=== PATIENT | male | born 1990 | race African-American/Black ===

== ENCOUNTER 2020-08-03 00:45 | Emergency (ER) | payer SELFPAY ==
[~2020-08-03] VITALS: Ht 172.7 cm; Wt 90.7 kg
--- NOTE | 2020-08-03 01:09 | Emergency Department Note ---
History of Present Illnes History of Present Illness Chief Complaint: Chest Pain History of Present Illness This is a 29 year old male ks in to the ed for concerns of anxiety x 1 month. patient states that he gets anxious and develops chest discomfort. the chest discomfort is only occuring when the anxiety is coming. ekg done and given to md for evaluation., DENIES ANXIETY AT THIS TIME . Historian: Patient Arrival Mode: Car Prosthetist Required: No Onset (how long ago): month(s) (1) Location: CHEST, Quality: CHEST PRESSURE AND ANXIETY Radiation: Reports non-radiation Severity: moderate Onset quality: sudden Timing of current episode: intermittent Progression: unchanged Chronicity: recurrent Context: Denies recent illness, Denies recent surgery Relieving factors: none Exacerbating factors: none Associated symptoms: Reports denies other symptoms Treatments prior to arrival: none Past Medical/Family History Physician Review I have reviewed the patient's past medical and family history. Any updates have been documented here. Past Medical History Recent Fever: No Clinical Suspicion of Infectio: No New/Unexplained Change in Ment: No Past Medical History: None Other Surgery: back surgery- [facility] Social History Smoking Cessation: Never Smoker Counseling Performed: No Alcohol Use: None Any Illegal Drug Use: No Review of Systems Review of Systems Constitutional: Reports no symptoms EENTM: Reports no symptoms Cardiovascular: Reports as per HPI Respiratory: Reports no symptoms Gastrointestinal: Reports no symptoms Genitourinary: Reports no symptoms Musculoskeletal: Reports no symptoms Integumentary: Reports no symptoms Neurological: Reports no symptoms Psychological: Reports no symptoms Endocrine: Reports no symptoms Hematological/Lymphatic: Reports no symptoms Physical Exam Related Data Allergies: Coded Allergies: No Known Allergies (Unverified , 08/03/20) Triage Vital Signs Vital Signs Date Time Temp Pulse Resp B/P (MAP) Pulse Ox O2 Delivery O2 Flow Rate FiO2 08/03/20 00:51 98.2 67 18 123/97 100 Vital signs reviewed: Yes Physical Exam CONSTITUTIONAL Constitutional: Present well-developed, Present well-nourished HENT HENT: Present normocephalic, Present atraumatic, Present oropharynx susan r/moist, Present nose normal HENT L/R: Present left ext ear normal, Present right ext ear normal EYES Eyes: Reports PERRL, Reports conjunctivae normal NECK Neck: Present ROM normal PULMONARY Pulmonary: Present effort normal, Present breath sounds normal CARDIOVASCULAR Cardiovascular: Present regular rhythm, Present heart sounds normal, Present capillary refill normal, Present normal rate GASTROINTESTINAL Abdominal: Present soft, Present nontender, Present bowel sounds normal GENITOURINARY Genitourinary: Present exam deferred SKIN Skin: Present warm, Present dry MUSCULOSKELETAL Musculoskeletal: Present ROM normal NEUROLOGICAL Neurological: Present alert, Present oriented x 3, Present no gross motor or sensory deficits PSYCHOLOGICAL Psychological: Present mood/affect normal, Present judgement normal Procedures 12 Lead ECG Interpretation ECG Interpretation : ECG: ECG 1 Prosthetist: Interpreted by ED physician Date: Aug 03, 2020 Time: 05:56 Prior ECG tracings: reviewed Rhythm: sinus rhythm Rate: normal BPM: 62 QRS axis: normal Conduction: intraventricular conduction delay ST segments normal: Yes T wave inversion: III T waves flattening: V5, V6 Other findings: LVH Clinical Impression: abnormal ECG Assessment & Plan Medical Decision Making MDM PT WITH ANXIETY ASSOCIATED FOR CHEST PAIN TIMES ONE MONTH THAT ONLY OCCURS AT NIGHT EKG ORDERED TO EVAL FOR ARRHYTHMIA, STEMI Assessment & Plan Final Impression: (1) Anxiety Depart Disposition: HOME, SELF-CARE Last Vital Signs Date Time Temp Pulse Resp B/P (MAP) Pulse Ox O2 Delivery O2 Flow Rate FiO2 08/03/20 00:51 98.2 67 18 123/97 100 SHAHID JOHNSON MD Aug 03, 2020 01:09
== END 2020-08-03 01:25 | disposition home or self-care (01) ==
LOC: ER 01:10
DX: F41.9 Anxiety disorder, unspecified (principal); R07.89 Other chest pain; R94.31 Abnormal electrocardiogram [ECG] [EKG]
CPT/HCPCS: 93005; 99282

== ENCOUNTER 2020-09-05 16:10 | Emergency (ER) | payer SELFPAY ==
[~2020-09-05] VITALS: Ht 172.7 cm; Wt 90.7 kg
[2020-09-05] MEDS ORDERED: ONDANSETRON HCL INJ 2MG/ML 2ML 2 MG/ML VIAL IV STA (16:58)
[2020-09-05] MEDS ORDERED: SODIUM CHLORIDE 0.9% 1000ML 1,000 ML IV SCH (17:00)
[2020-09-05] MEDS ORDERED: ONDANSETRON HCL INJ 2MG/ML 2ML 2 MG/ML VIAL ONE (17:14)
[2020-09-05] MEDS ORDERED: SODIUM CHLORIDE 0.9% 1000ML 1,000 ML ONE (17:14)
[2020-09-05] MEDS ORDERED: ONDANSETRON ODT8 MG SL (19:08)
[2020-09-05 19:24] VITALS: BP 143/99
== END 2020-09-05 19:24 | disposition home or self-care (01) ==
LOC: FSED 16:40
DX: R07.89 Other chest pain (principal); R10.9 Unspecified abdominal pain; R11.2 Nausea with vomiting, unspecified; R51.9 Headache, unspecified; F41.9 Anxiety disorder, unspecified
CPT/HCPCS: 70450; 71046; 71260; 74177; 80053; 81003; 82553; 84484; 85025; 93005; 99284; J2405; J7030

== ENCOUNTER 2020-09-30 04:10 | Emergency (ER) | payer SELFPAY ==
[~2020-09-30] VITALS: Ht 172.7 cm; Wt 95.3 kg
[~2020-09-30 04:10] MED LIST: ONDANSETRON ODT8 MG SL
[2020-09-30] MEDS ORDERED: ALBUTEROL SULFATE HFA 8GM INHALATION AEROSOL INH PRN (05:15)
[2020-09-30 06:12] VITALS: BP 132/96
== END 2020-09-30 06:12 | disposition home or self-care (01) ==
LOC: FSED 04:26
DX: U07.1 COVID-19 (principal); R06.00 Dyspnea, unspecified; R53.81 Other malaise; I10 Essential (primary) hypertension; J45.909 Unspecified asthma, uncomplicated; F41.9 Anxiety disorder, unspecified
CPT/HCPCS: 71046; 81003; 99283

== ENCOUNTER 2020-10-05 03:54 | Emergency (ER) | payer OTHER ==
[~2020-10-05] VITALS: Ht 172.7 cm; Wt 95.3 kg
[2020-10-05] MEDS ORDERED: ZOFRAN4 MG SL (04:36)
[2020-10-05] MEDS ORDERED: PEPCID20 MG PO (04:36)
[2020-10-05] MEDS ORDERED: ONDANSETRON HCL 4 MG ORAL DISINTEGRATING TAB PO ONE (04:45)
[2020-10-05] MEDS ORDERED: FAMOTIDINE 20 MG TAB ONE (04:46)
[2020-10-05] MEDS ORDERED: FAMOTIDINE 20 MG TAB PO ONE (05:00)
[2020-10-05 05:02] VITALS: BP 142/96
== END 2020-10-05 05:02 | disposition home or self-care (01) ==
LOC: FSED 04:31
DX: K29.00 Acute gastritis without bleeding (principal); K21.00 Gastro-esophageal reflux disease with esophagitis, without bleeding; I10 Essential (primary) hypertension; F41.9 Anxiety disorder, unspecified; J45.909 Unspecified asthma, uncomplicated
CPT/HCPCS: 99283; Q0162

== ENCOUNTER 2021-05-16 11:26 | Emergency (ER) | payer SELFPAY ==
[~2021-05-16] VITALS: Ht 172.7 cm; Wt 113.4 kg
[~2021-05-16 11:26] MED LIST changes: +PEPCID20 MG PO; +ZOFRAN4 MG SL
[2021-05-16] MEDS ORDERED: AZITHROMYCIN250 MG PO (13:20)
[2021-05-16] MEDS ORDERED: VENTOLIN HFA18 GM INH (13:22)
[2021-05-16] MEDS ORDERED: IBUPROFEN600 MG PO (13:23)
[2021-05-16] MEDS ORDERED: BROMPHENIR-PSE118 ML PO (13:25)
== END 2021-05-16 13:34 | disposition home or self-care (01) ==
LOC: FSED 12:30
DX: R05 Cough (principal); J20.9 Acute bronchitis, unspecified; B34.9 Viral infection, unspecified; I10 Essential (primary) hypertension; J45.909 Unspecified asthma, uncomplicated; F41.9 Anxiety disorder, unspecified
CPT/HCPCS: 99283

== ENCOUNTER 2021-07-16 21:21 | Emergency (ER) | payer OTHER ==
[~2021-07-16 21:21] MED LIST changes: +AZITHROMYCIN250 MG PO; +BROMPHENIR-PSE118 ML PO; +IBUPROFEN600 MG PO; +VENTOLIN HFA18 GM INH
== END 2021-07-16 22:05 | disposition short-term general hospital (02) ==
LOC: FSED 21:55
DX: R06.00 Dyspnea, unspecified (principal)

== ENCOUNTER 2021-07-21 02:52 | Emergency (ER) | payer MEDICAID, OTHER ==
[~2021-07-21] VITALS: Ht 172.7 cm; Wt 100.7 kg
[2021-07-21] MEDS ORDERED: ONDANSETRON HCL 4 MG ORAL DISINTEGRATING TAB PO ONE (03:15)
[2021-07-21] MEDS ORDERED: PROVENTIL HFA6.7 GM INH (03:23)
[2021-07-21] MEDS ORDERED: ONDANSETRON ODT4 MG PO (03:23)
[2021-07-21] MEDS ORDERED: OMEPRAZOLE20 M2 PO (03:23)
[2021-07-21] MEDS ORDERED: ONDANSETRON HCL 4 MG ORAL DISINTEGRATING TAB ONE (03:30)
[2021-07-21 03:44] VITALS: BP 143/89
[2021-07-21] MEDS ORDERED: FAMOTIDINE 20 MG TAB PO ONE (03:45)
[2021-07-21] MEDS ORDERED: FAMOTIDINE 20 MG TAB ONE (03:48)
== END 2021-07-21 03:44 | disposition home or self-care (01) ==
LOC: FSED 03:18
DX: R07.89 Other chest pain (principal); K21.00 Gastro-esophageal reflux disease with esophagitis, without bleeding
CPT/HCPCS: 71046; 93005; 99283; Q0162

== ENCOUNTER 2021-08-07 22:42 | Emergency (ER) | payer MEDICAID ==
[~2021-08-07] VITALS: Ht 172.7 cm; Wt 99.3 kg
[~2021-08-07 22:42] MED LIST changes: +OMEPRAZOLE20 M2 PO; +ONDANSETRON ODT4 MG PO; +PROVENTIL HFA6.7 GM INH
[2021-08-07] MEDS ORDERED: DONNATAL/LIDOCAINE/MAALOX 30 ML SUSP PO ONE (23:15)
[2021-08-07] MEDS ORDERED: LIDOCAINE VISC 2% SOLN 15 ML UDC ONE (23:19)
[2021-08-07] MEDS ORDERED: PANTOPRAZOLE SO40 MG PO (23:20)
[2021-08-07] MEDS ORDERED: MAGNESIUM/ALUMINUM/SIMETHICONE 30 ML UDC ONE (23:20)
[2021-08-07] MEDS ORDERED: BELLADONNA ALK/PHENOBARBITAL 5 ML UDC ONE (23:20)
[2021-08-07 23:28] VITALS: BP 130/85
== END 2021-08-07 23:27 | disposition home or self-care (01) ==
LOC: FSED 23:05
DX: K21.9 Gastro-esophageal reflux disease without esophagitis (principal); I10 Essential (primary) hypertension; F41.9 Anxiety disorder, unspecified; J45.909 Unspecified asthma, uncomplicated
CPT/HCPCS: 93005; 99282